=== PATIENT | female | born 1980 | race Caucasian/White ===

== ENCOUNTER 2017-09-07 00:06 | Emergency (ER) | payer OTHER ==
[~2017-09-07] VITALS: Ht 170.2 cm; Wt 61.2 kg
--- NOTE | ~2017-09-07 | EKG ---
[address] [address] ELECTROCARDIOGRAM REPORT Name: REBEKAH DALEY Room #: [facility]#: [id number] Admission: 09/07/17 Attend Phys: Discharge: 09/07/17 Date of : 78 Report #: [id number] THIS REPORT FOR: //name// [facility] ED Test Date: 2017-09-07 Test Time: 00:28:33 Pat Name: REBEKAH COLLAZO Department: Room: Gender: F Tissue Packer: SAMANTHA : 1980 Requested By: Huang Mcmanus Order Number: [id number] MD: Nhan Mandel Measurements Intervals [place] Rate: 87 P: 78 FL: 168 QRS: 64 QRSD: 102 T: 60 QT: 368 QTc: 443 Interpretive Statements Sinus rhythm No significant abnormality Compared to ECG 03/08/2016 13:08:37 Sinus tachycardia no longer present Electronically Signed On 09-07-2017 12:45:22 UROLOGIST PHYSICIAN by Nhan Mandel [email or web address] <ELECTRONICALLY SIGNED> By: Nhan Mandel MD, [facility] 09/07/17 1245 D: 1227 Nhan Mandel MD, FAC /EPI
[~2017-09-07 00:06] MED LIST: AMBIEN 5 MG TABL5 M1 PO; APAP500; ATENOLOL 25 MG25 M1 PO; ATENOLOL 25MG T25 M1 PO; AUGMENTIN 875875 MG PO; B12INJ IM; BACTRIM DS TAB1 EACH PO; BENADRYL25 MG PO; BENTYL 20 MG TA20 M1 PO; BIOTIN1000 MCG PO; BUPROBAN150 MG PO; CARAFATE 1 GM TA1 G1 PO; CLONAZEPAM 1 MG1 M1 PO; COLACE100 MG PO; DIPHENHIST25 M1 PO; ESTRADIOL1 EAC4 TRANSDERM; ESTRADIOL1 EAC9 TRANSDERM; HAIR, SKIN & N1 EAC3 PO; HAIR,SKIN,NAILS VIT PO; HYDROCODON-ACE1 EAC8 PO; IBUPROFEN 200200 M1 PO; IBUPROFEN 600600 M1 PO; IRON325 PO; KLONOPIN1 MG PO; LISINOPRIL10 MG PO; LISINOPRIL20 MG PO; MACROBID 100 M100 M1 PO; NORCO 5-325 TA1 EACH PO; ONDANSETRON HCL4 M2 PO; OXYCODONE HCL 55 MG PO; PERCOCET 10-321 EACH PO; PERCOCET PO; POTASSIUM20 PO; PROTONIX40 M1 PO; RAPAFLO8 MG PO; SIMETHICON CHEW80 M1 PO; TRAMADOL 50 MG50 MG PO; TYLENOL325 MG PO; VISTARIL 25 MG25 M1 PO; WELLBUTRIN XL150 MG PO; WOMEN'S DAILY1 EAC1 PO
[2017-09-07] MEDS ORDERED: WELLBUTRIN SR100 MG PO (00:34)
[2017-09-07 03:00] VITALS: BP 112/71
== END 2017-09-07 03:00 | disposition left against medical advice (07) ==
LOC: ER 00:06
DX: G89.29 Other chronic pain (principal); R10.84 Generalized abdominal pain; R07.9 Chest pain, unspecified; R11.2 Nausea with vomiting, unspecified; N81.89 Other female genital prolapse; K50.90 Crohn's disease, unspecified, without complications; F17.210 Nicotine dependence, cigarettes, uncomplicated; Z90.49 Acquired absence of other specified parts of digestive tract; Z76.5 Malingerer [conscious simulation]; Z90.89 Acquired absence of other organs; Z90.710 Acquired absence of both cervix and uterus; Z88.5 Allergy status to narcotic agent; Z88.8 Allergy status to other drugs, medicaments and biological substances; Z91.041 Radiographic dye allergy status